=== PATIENT | female | born 1945 | race Caucasian/White ===

== ENCOUNTER 2021-05-18 16:46 | Emergency (ER) | payer OTHER ==
[~2021-05-18] VITALS: Ht 149.8 cm; Wt 39.5 kg
[2021-05-18 17:21] LABS: HEMATOCRIT 26.8 % (37.0-47.0); MEAN CELL VOLUME 110.3 fl (81.0-99.0); MEAN CORPUSCULAR HGB 35.8 pg (27.0-31.0); MEAN CORPUSCULAR HGB CONC 32.5 g/dl (33.0-37.0); MEAN PLATELET VOLUME 9.7 fl (9.6-12.3); PLATELET COUNT AUTOMATED 179 10*3/uL (130-400); RED BLOOD COUNT 2.43 10*6/uL (4.10-5.10); WHITE BLOOD COUNT 2.1 10*3/uL (4.8-10.8)
[2021-05-18 17:44] LABS: ALBUMIN 3.2 gm/dl (3.1-4.5); ALKALINE PHOSPHATASE 110 U/L (45-117); BUN 16 mg/dl (7-24); CHLORIDE 109 mmol/L (98-107); CREATININE 0.79 mg/dL (0.55-1.02); LIPASE 65 U/L (73-393); POTASSIUM 3.1 mmol/L (3.5-5.1); SGOT/AST 18 IU/L (3-35); SGPT/ALT 16 U/L (12-78); SODIUM 141 mmol/L (136-145); TOTAL PROTEIN 6.4 gm/dL (6.4-8.2)
[2021-05-18 17:49] LABS: BASOPHILS 1 % (0-1); PLATELET SUFFICIENCY NORMAL (NORMAL); TOTAL CELLS COUNTED 100 #CELLS; TROPONIN I < 0.015 ng/ml (<0.045)
== END 2021-05-18 22:40 | disposition short-term general hospital (02) ==
LOC: ED 16:46
PROVIDERS: Emergency Medicine
DX: G93.9 Disorder of brain, unspecified (principal); R29.810 Facial weakness; R53.1 Weakness; R47.81 Slurred speech